=== PATIENT | male | born 1995 | race Caucasian/White ===

== ENCOUNTER → 2020-04-06 | Outpatient (CLI) | payer OTHER | END | disposition home or self-care (01) | LOC: LABWHC1 13:04 | PROVIDERS: ATTEND Nurse Practitioner Family | DX: J30.89 Other allergic rhinitis (principal) | CPT/HCPCS: 36415; 86001; 86003 ==

== ENCOUNTER → 2023-12-24 | Outpatient (CLI) | payer OTHER ==
[2023-12-24 14:40] LABS: Basophils # (A) 0.11 X 10*3/uL (0.00-0.10); Basophils % (A) 1.5 %; Eosinophils # (A) 0.09 X 10*3/uL (0.04-0.35); Eosinophils % (A) 1.2 %; HCT 44.3 % (39.6-50.0); HGB 15.3 g/dL (13.0-17.0); Lymphocytes # (A) 2.68 X 10*3/uL (0.90-5.00); Lymphocytes % (A) 36.9 %; MCH 29.8 pg (27.0-32.0); MCHC 34.5 g/dL (32.0-37.0); MCV 86.4 FL (80.0-97.0); Mean Platelet Volume 9.1 FL (9.5-12.2); Monocytes # (A) 0.38 X 10*3/uL (0.20-1.00); Monocytes % (A) 5.2 %; NRBC Per 100 WBC 0 X 10*3/uL (0.00-0.01); Neutrophils # (A) 3.98 X 10*3/uL (1.80-7.70); Neutrophils % (A) 54.8 %; Platelet Count 242 X 10*3/uL (140-440); RBC 5.13 X 10*6/uL (4.40-5.60); RDW 12.6 % (11.5-14.5); WBC 7.27 X 10*3/uL (4.50-10.00)
[2023-12-24 15:18] LABS: ALT 20 U/L (10-49); AST 23 U/L (14-35); Albumin 4.2 g/dL (3.8-4.9); Albumin/Globulin Ratio 1.56 Ratio (1.60-3.17); Alkaline Phosphatase 99 U/L (41-126); BUN/Creat Ratio 16.25 Ratio (12.00-20.00); Calcium 9.5 mg/dL (8.7-10.3); Carbon Dioxide 25.4 mmol/L (21.6-31.8); Chloride 103 mmol/L (96-109); Globulin 2.7 g/dL (1.6-3.3); Glucose 99 mg/dL (70-110); Potassium 4.3 mmol/L (3.5-5.5); Sodium 140 mmol/L (135-145); Total Bilirubin 0.7 mg/dL (0.3-1.2); Total Protein 6.9 g/dL (6.2-8.2)
[2023-12-25 08:13] LABS: Levetiracetam (Keppra) 24.1 ug/mL (3.0-60.0)
== END | disposition home or self-care (01) ==
LOC: LABWHC1 11:51
PROVIDERS: ATTEND Psychiatry & Neurology Neurology
DX: G40.219 Localization-related (focal) (partial) symptomatic epilepsy and epileptic syndromes with complex partial seizures, intractable, without status epilepticus (principal)
CPT/HCPCS: 36415; 80053; 80177; 80235; 82306; 85025

== ENCOUNTER → 2024-02-18 | Outpatient (CLI) | payer OTHER ==
--- NOTE | 2024-03-14 07:42 | CT ---
Fortunato Morgan ID: [id number] : 1995 EXAMINATION TYPE: CT brain wo con DATE OF EXAM: 02/18/2024 COMPARISON: 03/28/2012 HISTORY: 28-year-old male seizure TECHNIQUE: Examination was done in axial plane without intravenous contrast. Coronal and sagittal r econstructions performed. CT DLP: 1186 mGycm Automated exposure control for dose reduction was used. FINDINGS: There is no evidence of acute intracranial hemorrhage, acute ischemic changes, mass, mass-effect, or extra-axial fluid collection. There is no effacement of cerebral sulci or basal subarachnoid cister ns. There is no hydrocephalus. There is no midline shift. Vasquez-white matter distinction is preserv ed. Some left-sided benign basal ganglia calcifications are noted. Either some soft tissue scarring or mild contusion along the left superior posterior scalp. Clinicall y correlate. Some minimal opacification dependent in the left sphenoid sinus. Otherwise, paranasal sinuses and mas toid air cells well pneumatized. Orbits and globes are intact. IMPRESSION: 1. Neither some soft tissue scarring or mild contusion along the left superior scalp. Clinically karen elate. 2. Benign basal ganglia calcifications on the left. 3. No acute intracranial abnormality seen.
== END | disposition home or self-care (01) ==
LOC: RADCTMAIN 09:30
PROVIDERS: ATTEND Psychiatry & Neurology Neurology
DX: G40.219 Localization-related (focal) (partial) symptomatic epilepsy and epileptic syndromes with complex partial seizures, intractable, without status epilepticus (principal); G93.89 Other specified disorders of brain
CPT/HCPCS: 70450